=== PATIENT | female | born 1950 | race Caucasian/White ===

== ENCOUNTER → 2017-09-04 | Outpatient (CLI) | payer MEDICARE | END | disposition home or self-care (01) | LOC: RT 07:56 | DX: R42 Dizziness and giddiness (principal) | CPT/HCPCS: 95816 ==

== ENCOUNTER → 2017-09-05 | Outpatient (CLI) | payer MEDICARE | END | disposition home or self-care (01) | LOC: ECHO 13:01 | DX: H53.8 Other visual disturbances (principal); R55 Syncope and collapse; R42 Dizziness and giddiness; R29.6 Repeated falls; R20.0 Anesthesia of skin | CPT/HCPCS: 93306 ==

== ENCOUNTER → 2017-09-08 | Outpatient (CLI) | payer MEDICARE ==
[~2017-09-08] MED LIST: CLINDAMYCIN 900MG PREMIX 50 ML IV; SCOPOLAMINE 1.5MG PATCH. TD; methylPREDNISolone ACETATE 80 MG/ML VIAL.
== END | disposition home or self-care (01) ==
LOC: US 14:03
DX: I65.23 Occlusion and stenosis of bilateral carotid arteries (principal); H53.8 Other visual disturbances; R42 Dizziness and giddiness; R55 Syncope and collapse
CPT/HCPCS: 70551; 93880; J1040